=== PATIENT | female | born 1990 | race Caucasian/White ===

== ENCOUNTER 2016-05-18 14:06 | Emergency (ER) | payer OTHER, BC, MEDICAID ==
[2016-05-18 14:11] VITALS: BP 139/84
--- NOTE | 2016-05-18 14:16 | EDM.PDOC ---
ED HPI GENERAL MEDICAL PROBLEM - General Chief Complaint: Body Fluid Exposure Stated Complaint: UNK Time Seen by Provider: 05/18/16 14:13 - History of Present Illness INITIAL COMMENTS - FREE TEXT/NARRATIVE: HISTORY AND PHYSICAL: History of present illness: Patient's 26-year-old white female presents from the clinic status post needle stick this was a needle from a 2-month-old baby that received intramuscular shot with no known medical problems patient has no complaints of pain or tightness in the center follow protocol as per policy and procedure Review of systems: As per history of present illness and below otherwise all systems reviewed and negative. Past medical history: As per history of present illness and as reviewed below otherwise noncontributory. Surgical history: As per history of present illness and as reviewed below otherwise noncontributory. Social history: No reported history of drug or alcohol abuse. Family history: As per history of present illness and as reviewed below otherwise noncontributory. Physical exam: Physical exam remarkable for small needle stick on the dorsal aspect of left hand with no active bleeding CMS neurovascular is unremarkable his physical exam is noncontributory Diagnostics: As per protocol Therapeutics: As per protocol Impression: #1 observation status post needle Definitive disposition and diagnosis as appropriate pending reevaluation and review of above. - Related Data Allergies Allergy/AdvReac Type Severity Reaction Status Date / Time No Known Allergies Allergy Verified 05/18/16 14:08 Home Meds: Home Meds Phentermine HCl 37.5 mg PO DAILY 05/18/16 [History] Past Medical History - Past Health History Medical/Surgical History: Denies Medical/Surgical History Social & Family History - Alcohol Use Days Per Week of Alcohol Use: 0 Number of Drinks Per Day: 0 Total Drinks Per Week: 0 - Recreational Drug Use Recreational Drug Use: No Drug Use in Last 12 Months: No ED ROS GENERAL - Review of Systems Review Of Systems: ROS reveals no pertinent complaints other than HPI. ED EXAM, GENERAL - Physical Exam Exam: See Below (See dictation) Course - Vital Signs Last Recorded V/S: Last Vital Signs Temp 36.6 C 05/18/16 14:08 Pulse 78 05/18/16 14:08 Resp 16 05/18/16 14:08 BP 139/84 05/18/16 14:08 Pulse Ox 99 05/18/16 14:08 Departure - Departure Time of Disposition: 14:15 Disposition: Home, Self-Care 01 Condition: good Clinical Impression: Needlestick injury accident Forms: ED Department Discharge Additional Instructions: The following information is given to patients seen in the emergency department who are being discharged to home. This information is to outline your options for follow-up care. We provide all patients seen in our emergency department with a follow-up referral. The need for follow-up, as well as the timing and circumstances, are variable depending upon the specifics of your emergency department visit. If you don't have a primary care physician on staff, we will provide you with a referral. We always advise you to contact your personal physician following an emergency department visit to inform them of the circumstance of the visit and for follow-up with them and/or the need for any referrals to a consulting specialist. The emergency department will also refer you to a specialist when appropriate. This referral assures that you have the opportunity for followup care with a specialist. All of these measure are taken in an effort to provide you with optimal care, which includes your followup. Under all circumstances we always encourage you to contact your private physician who remains a resource for coordinating your care. When calling for followup care, please make the office aware that this follow-up is from your recent emergency room visit. If for any reason you are refused follow-up, please contact the [facility] emergency department at and asked to speak to the emergency department charge nurse. Followup with private medical doctor/employee health as discussed return as needed as
== END 2016-05-18 15:10 | disposition home or self-care (01) ==
LOC: MW.ED 14:06
DX: T75.89XA Other specified effects of external causes, initial encounter (principal); Z79.899 Other long term (current) drug therapy; W46.1XXA Contact with contaminated hypodermic needle, initial encounter
CPT/HCPCS: 36415; 86706; 86803; 87389; 99281; 99283

== ENCOUNTER → 2016-06-16 | Outpatient (CLI) | payer BC, MEDICAID | LOC: MW.CHOBGYN 08:59 | PROVIDERS: ATTEND Nurse Practitioner Women's Health | DX: N89.8 Other specified noninflammatory disorders of vagina (principal) | CPT/HCPCS: 87480; 87510; 87660 ==